=== PATIENT | male | born 1995 | race African-American/Black ===

== ENCOUNTER 2016-10-29 20:14 | Emergency (ER) ==
[~2016-10-29] VITALS: Ht 167.6 cm; Wt 103.3 kg
[2016-10-29] MEDS ORDERED: LAMI250T3 PO (20:22)
[2016-10-29] MEDS ORDERED: CLEO300C2 PO (20:42)
[2016-10-29] MEDS ORDERED: IBUP600T26 PO (20:42)
[2016-10-29] MEDS ORDERED: CLINDAMYCIN 150 MG CAP PO ONE (21:00)
== END 2016-10-29 22:05 | disposition home or self-care (01) ==
LOC: M ED 21:01
DX: L60.0 Ingrowing nail (principal); Z79.899 Other long term (current) drug therapy; Z88.0 Allergy status to penicillin

== ENCOUNTER 2017-12-17 23:38 | Emergency (ER) | payer OTHER ==
[2017-12-18] MEDS: KETOROLAC 30 MG/ML VIAL (J1885) IV (01:00)
[2017-12-18] MEDS: diphenhydrAMINE INJ 50MG/ML VIAL (J1200) IV (01:00)
[2017-12-18] MEDS: METOCLOPRAMIDE INJ 10MG/2ML VIAL (J2765) IV (01:00)
== END 2017-12-18 02:29 | disposition home or self-care (01) ==
LOC: M ED 23:38
DX: G44.82 Headache associated with sexual activity (principal); Z79.899 Other long term (current) drug therapy; Z88.0 Allergy status to penicillin
CPT/HCPCS: J1200

== ENCOUNTER 2018-09-03 21:50 | Emergency (ER) | payer OTHER ==
[~2018-09-03] VITALS: Ht 167.6 cm; Wt 112.3 kg
[2018-09-03 21:50] VITALS: BP 141/91
[~2018-09-03 21:50] MED LIST: CLEO300C2 PO; EXCETAB80 PO; IBUP-1022 PO; LAMI250T3 PO; PROP60TA14 PO; TRAZ-160 PO; ZOMI5TAB12 PO
[2018-09-03] MEDS ORDERED: IBUP-1022 PO (22:23)
[2018-09-03] MEDS ORDERED: CLEO300C2 PO (22:23)
[2018-09-03] MEDS ORDERED: CLINDAMYCIN 150 MG CAP PO ONE (22:30)
== END 2018-09-03 22:50 | disposition home or self-care (01) ==
LOC: M ED 21:50
DX: L60.0 Ingrowing nail (principal); Z88.0 Allergy status to penicillin

== ENCOUNTER 2018-11-09 09:03 | Emergency (ER) | payer OTHER ==
[~2018-11-09] VITALS: Ht 165.1 cm; Wt 117.7 kg
[2018-11-09 09:03] VITALS: BP 141/78
[~2018-11-09 09:03] MED LIST changes: -TRAZ-160 PO; +TRAZ-252 PO
[2018-11-09] MEDS ORDERED: HYDR-643 (09:09)
[2018-11-09] MEDS ORDERED: DERMABOND TOPICAL SKIN ADHESIVE TOP ONE (09:45)
== END 2018-11-09 10:00 | disposition home or self-care (01) ==
LOC: M ED 09:03
DX: S61.217A Laceration without foreign body of left little finger without damage to nail, initial encounter (principal); W26.8XXA Contact with other sharp object(s), not elsewhere classified, initial encounter; Y92.89 Other specified places as the place of occurrence of the external cause; Y99.1 Military activity; Z88.0 Allergy status to penicillin; Z79.899 Other long term (current) drug therapy

== ENCOUNTER 2018-12-03 19:52 | Emergency (ER) | payer OTHER ==
[~2018-12-03] VITALS: Ht 165.1 cm; Wt 118.2 kg
[~2018-12-03 19:52] MED LIST changes: +HYDR-643
[2018-12-03] MEDS ORDERED: LIDOCAINE 2% MDV 20 ML VIAL SC ONE (23:45)
[2018-12-04 00:43] VITALS: BP 138/70
== END 2018-12-04 00:44 | disposition home or self-care (01) ==
LOC: M ED 19:52
DX: S61.011A Laceration without foreign body of right thumb without damage to nail, initial encounter (principal); W26.8XXA Contact with other sharp object(s), not elsewhere classified, initial encounter; Y92.89 Other specified places as the place of occurrence of the external cause; Y99.0 Civilian activity done for income or pay; I10 Essential (primary) hypertension; F33.9 Major depressive disorder, recurrent, unspecified; F41.9 Anxiety disorder, unspecified; Z88.0 Allergy status to penicillin